=== PATIENT | male | born 1955 | race Hispanic/Latino ===

== ENCOUNTER 2019-08-31 14:00 | Inpatient (IN) | payer OTHER ==
[~2019-08-31] VITALS: Ht 170.2 cm; Wt 96.9 kg
[2019-08-31 13:56] VITALS: BP 132/77
[2019-08-31 14:04] LABS: BASOPHILS % (AUTO) 0.5 % (0.0-5.0); HEMATOCRIT 44.2 % (42-54); LYMPHOCYTES % (AUTO) 38.8 % (21.0-51.0); MEAN CORPUSCULAR HEMOGLOBIN 32.2 pg (27.0-33.0); MEAN CORPUSCULAR HGB CONC 34.9 g/dL (32.0-36.0); MEAN CORPUSCULAR VOLUME 92.2 fL (79-99); MONOCYTES % (AUTO) 12.5 % (3.0-13.0); NEUTROPHILS % (AUTO) 45.2 % (40.0-77.0); PLATELET COUNT (AUTO) 196 K/uL (130-400); RED CELL DISTRIBUTION WIDTH 13.3 % (11.0-15.5); WHITE BLOOD COUNT (AUTO) 5.4 K/uL (4.8-10.8)
[2019-08-31 14:07] LABS: APPEARANCE,URINE Clear (CLEAR); BILIRUBIN,URINE Negative (NEGATIVE); COLOR,URINE Yellow (YELLOW); GLUCOSE, URINE (UA) Negative (NEGATIVE); KETONES,URINE Negative (NEGATIVE); LEUKOCYTE ESTERASE ,URINE Trace (NEGATIVE); NITRATE,URINE Negative (NEGATIVE); OCCULT BLOOD,URINE Negative (NEGATIVE); PROTEIN,URINE Negative (NEGATIVE)
[2019-08-31 14:12] LABS: POTASSIUM 4.2 mmol/L (3.5-5.1)
[2019-08-31 14:14] LABS: INR 1.04 (0.85-1.15); PROTHROMBIN TIME 10.9 SEC (9.6-11.6)
[2019-08-31 14:19] LABS: BACTERIA,URINE None Seen /HPF (None Seen); RBC,URINE 0-1 /HPF (0-1); SQUAMOUS EPITHELIAL CELL,UR 0-2 /HPF (0-2)
[2019-08-31] MEDS ORDERED: ASPI-555 PO (14:25)
[2019-08-31] MEDS ORDERED: CETI10TA57 PO (14:25)
[2019-08-31] MEDS ORDERED: DOCUSATE PO (14:25)
[2019-08-31] MEDS ORDERED: CIPR-278 PO (14:25)
[2019-08-31] MEDS ORDERED: SENNOSIDES PO (14:25)
[2019-08-31] MEDS ORDERED: vitamin D3 PO (14:25)
[2019-08-31] MEDS: CEFAZOLIN SODIUM 1 GM VIAL IVP SCH (15:00)
--- NOTE | 2019-08-31 17:40 | NUR ---
UA INFORMED DR. HARRINGTON OF ABNORMAL UA. ORDERS RECEIVED TO GIVE GENTAMICIN 240MG IV ON AM OF SURGERY AND SEND URINE FOR CULTURE.
[2019-09-01] VITALS (22 sets, daily range): BP systolic 122–159; BP diastolic 62–86
[2019-09-01] MEDS ORDERED: GENTAMICIN SULFATE 240 MG in SODIUM CHLORIDE 0.9% 100 ML IV SCH (07:00)
[2019-09-01] MEDS ORDERED: LACTATED RINGERS 1000ML 1,000 ML IV ONE (09:27)
[2019-09-01] MEDS ORDERED: FINA5TAB41 PO (09:49)
[2019-09-01] MEDS ORDERED: NAPR250T4 PO (09:49)
[2019-09-01] MEDS ORDERED: PANT40TA25 PO (09:49)
[2019-09-01] MEDS ORDERED: CHOL200074 PO (09:49)
[2019-09-01] MEDS ORDERED: ACETAMINOPHEN EXTRA STRENGTH 500 MG TABLET ONE (12:38)
[2019-09-01] MEDS ORDERED: KETOROLAC TROMETHAMINE 15MG/ML ONE (12:38)
[2019-09-01] MEDS ORDERED: METOCLOPRAMIDE 10 MG/2 ML VIAL ONE (12:38)
[2019-09-01] MEDS ORDERED: CELECOXIB 200 MG CAP ONE (12:39)
[2019-09-01] MEDS ORDERED: TRANEXAMIC ACID 1000MG/10ML IV ONE (13:08)
[2019-09-01] MEDS ORDERED: CEFAZOLIN SODIUM 1 GM VIAL ONE (13:08)
[2019-09-01] MEDS ORDERED: LIDOCAINE PF 2% 5ML ABBOJECT ONE (14:47)
[2019-09-01] MEDS ORDERED: DEXAMETHASONE SOD PHOSPHATE 10MG/ML 1ML VIAL ONE (14:48)
[2019-09-01] MEDS ORDERED: ONDANSETRON HCL 4 MG/2 ML VIAL ONE (14:48)
[2019-09-01] MEDS ORDERED: PROPOFOL 10 MG/ML 20ML VIAL IV ONE (14:48)
[2019-09-01] MEDS ORDERED: MIDAZOLAM HCL 1 MG/ML 2ML VIAL ONE (14:48)
[2019-09-01] MEDS ORDERED: FENTANYL CITRATE PF 50 MCG/1 ML 2ML VIAL ONE ×2 (14:49→16:07)
[2019-09-01] MEDS ORDERED: ROCURONIUM 10MG/1ML SYR 10 MG/ML ML ONE (15:34)
[2019-09-01] MEDS: CEFAZOLIN SODIUM 1 GM VIAL IVP SCH ×2 (15:44→21:36)
[2019-09-01] MEDS ORDERED: CEFAZOLIN SODIUM 1 GM VIAL IRRIG ONE (16:30)
[2019-09-01] MEDS ORDERED: FERROUS FUMARATE 324 MG TABLET PO PRN (17:30)
[2019-09-01] MEDS ORDERED: KETOROLAC TROMETHAMINE 15MG/ML IV PRN (17:30)
[2019-09-01] MEDS ORDERED: OXYCODONE HCL 5 MG TAB PO PRN (17:30)
[2019-09-01] MEDS: ACETAMINOPHEN EXTRA STRENGTH 500 MG TABLET PO SCH ×2 (17:30→23:39)
[2019-09-01] MEDS ORDERED: TRAMADOL HCL 50 MG TABLET PO PRN (17:30)
[2019-09-01] MEDS ORDERED: DiphenhydrAMINE HCL 50 MG/ML VIAL IVP PRN (17:30)
[2019-09-01] MEDS ORDERED: ONDANSETRON HCL 4 MG/2 ML VIAL IVP PRN (17:30)
[2019-09-01] MEDS ORDERED: CALCIUM CARBONATE 500 MG TABLET PO PRN (17:30)
[2019-09-01] MEDS ORDERED: GLYCOPYRROLATE 1 MG/5 ML SYRINGE ONE (17:39)
[2019-09-01] MEDS ORDERED: NEOSTIGMINE 5MG/5ML SYR IV ONE (17:40)
[2019-09-01 19:08] LABS: BF EOSINOPHIL 3 %; BF LYMPHOCYTE 91 %
[2019-09-01 19:09] LABS: APPEARANCE BODY FLUID CLOUDY (CLEAR); BODY FLUID WBC 278 /cu. mm.; COLOR,BODY FLUID RED (LT YELLOW); SPECIMENTYPE,BODY FLUID SYNOVIAL; TOTAL VOLUME,BODY FLUID 3 mL
[2019-09-01 19:10] LABS: BODY FLUID RBC 895 /cu. mm.
[2019-09-01] MEDS: SODIUM CHLORIDE 0.9% 1000ML 1,000 ML IV SCH (19:53)
--- NOTE | 2019-09-01 20:00 | NUR ---
ASSESSMENT/TEACHING PATIENT AWAKE, ALERT, OX3, NO SOB, NO C/O PAIN, ENCOURAGE DEEP BREATHING EXERCISES, REINFORCE IS PREVIOUSLY DONE WITH MAXIMUM VOLUME INSPIRATION OF 2000, DRESSING LEFT KNEE WITH BETITO BANDAGE D/I, BLE SCDS IN PLACE, CALL FRIEDMAN AT REACH
[2019-09-01] MEDS: DOCUSATE PO SCH (21:00)
[2019-09-01] MEDS ORDERED: ASPIRIN 81MG TAB.CHEW PO SCH (21:00)
[2019-09-01] MEDS: SENNOSIDES PO SCH (21:00)
[2019-09-01] MEDS: PREGABALIN 25 MG CAP PO SCH (21:12)
[2019-09-01] MEDS: CALCIUM CARBONATE 500 MG TABLET PO SCH (21:12)
[2019-09-01] MEDS: CELECOXIB 200 MG CAP PO SCH (21:12)
[2019-09-01] MEDS: FAMOTIDINE 20MG TAB 20 MG TAB PO SCH (21:12)
[2019-09-02 00:12] VITALS: BP 98/61
[2019-09-02] MEDS: SODIUM CHLORIDE 0.9% 1000ML 1,000 ML IV SCH ×2 (03:17→12:25)
[2019-09-02 04:20] VITALS: BP 135/84
[2019-09-02] MEDS: CEFAZOLIN SODIUM 1 GM VIAL IVP SCH (05:33)
[2019-09-02 07:30] VITALS: BP 118/74
[2019-09-02] MEDS: SENNOSIDES PO SCH ×2 (07:44→21:00)
[2019-09-02] MEDS: DOCUSATE PO SCH ×2 (07:44→21:00)
[2019-09-02] MEDS: CHOLECALCIFEROL 1000 UNIT PO SCH (07:44)
[2019-09-02] MEDS: CELECOXIB 200 MG CAP PO SCH ×2 (08:14→19:49)
[2019-09-02] MEDS: ASPIRIN 81 MG EC TAB PO SCH (08:14)
[2019-09-02] MEDS: POLYETHYLENE GLYCOL 3350 17 GM POWD.PACK PO SCH (08:14)
[2019-09-02] MEDS: FAMOTIDINE 20MG TAB 20 MG TAB PO SCH ×2 (08:14→19:49)
[2019-09-02] MEDS: PREGABALIN 25 MG CAP PO SCH ×2 (08:14→19:49)
[2019-09-02] MEDS: LEVOFLOXACIN 500 MG TABLET PO SCH (08:15)
[2019-09-02] MEDS: CALCIUM CARBONATE 500 MG TABLET PO SCH ×2 (08:15→19:49)
[2019-09-02] MEDS: PANTOPRAZOLE SODIUM 40 MG TABLET.DR PO SCH (08:15)
[2019-09-02] MEDS: ACETAMINOPHEN EXTRA STRENGTH 500 MG TABLET PO SCH ×2 (08:29→18:29)
[2019-09-02] MEDS: FINASTERIDE 5 MG TABLET PO SCH (08:29)
--- NOTE | 2019-09-02 10:00 | NUR ---
DCP CM met with pt discussed dc plans. Pt is independent prior to surgery, lives at home w/spouse. Pt has a walker, rollator walker, shower chair. Denies any other equipments/services. Feels safe to go back home, spouse able to assist with transportation and needs as necessary. Agreeable for home w/HH, DME, [facility] to [facility], confirmation received. DC plan to home w/HH and DME. CM to cont to follow up. Addendum: 09/02/19 at 1447 by DIVYA LEMUS LVN CM Amended: Links added.
[2019-09-02 11:00] VITALS: BP 122/68
--- NOTE | 2019-09-02 11:00 | NUR ---
CM Note: [facility]ancelled [facility] for [facility] per pt request. CM met with pt and spouse as per pt request. Verbalized it woud be difficult for spouse to take care of pt at home, requested to go to IRU. VERNON signed for [facility]. Informed pt will inform MD of pt's request. Dr Barnett called as CM dialing MD#, as per Dr Barnett ok for pt to go to [facility] for rehab. CM spoke to pt and made aware of MD recommendations, pt agreeable to go to [facility]. Faxed order, clinicals, PT, confirmatino received. Pt pending approval and acceptance. Primary nurse aware. CM to cont to follow up.
--- NOTE | 2019-09-02 14:49 | NUR ---
CM Note: [facility] pending [facility] CM spoke to Lyly canales/Vimal . Received order and clinicals, states will submit for auth to [facility] today. Pt pending approval. MOT semi-filled pending to be completed, flagged in chart. EMS arranged and faxed for tomorrow, primary nurse to call [facility] once pt ready to DC if needed tomorrow. Primary nurse aware. CM to cont to follow up.
[2019-09-02 16:00] VITALS: BP 113/63
[2019-09-02] MEDS: OXYCODONE HCL 5 MG TAB PO PRN ×2 (19:46→23:50)
[2019-09-02 20:15] VITALS: BP 112/62
[2019-09-03 00:20] VITALS: BP 108/64
[2019-09-03] MEDS: ACETAMINOPHEN EXTRA STRENGTH 500 MG TABLET PO SCH ×3 (01:30→17:30)
[2019-09-03 04:18] VITALS: BP 121/78
[2019-09-03] MEDS: PANTOPRAZOLE SODIUM 40 MG TABLET.DR PO SCH (08:02)
[2019-09-03] MEDS: OXYCODONE HCL 5 MG TAB PO PRN ×2 (08:04→12:43)
[2019-09-03 08:05] VITALS: BP 136/78
[2019-09-03] MEDS: DOCUSATE PO SCH (09:00)
[2019-09-03] MEDS: CHOLECALCIFEROL 1000 UNIT PO SCH (09:00)
[2019-09-03] MEDS: SENNOSIDES PO SCH (09:00)
[2019-09-03] MEDS: POLYETHYLENE GLYCOL 3350 17 GM POWD.PACK PO SCH (10:05)
[2019-09-03] MEDS: ASPIRIN 81 MG EC TAB PO SCH (10:07)
[2019-09-03] MEDS: CELECOXIB 200 MG CAP PO SCH (10:07)
[2019-09-03] MEDS: PREGABALIN 25 MG CAP PO SCH (10:07)
[2019-09-03] MEDS: FAMOTIDINE 20MG TAB 20 MG TAB PO SCH (10:07)
[2019-09-03] MEDS: CALCIUM CARBONATE 500 MG TABLET PO SCH (10:08)
[2019-09-03] MEDS: LEVOFLOXACIN 500 MG TABLET PO SCH (10:08)
[2019-09-03] MEDS: FINASTERIDE 5 MG TABLET PO SCH (10:08)
--- NOTE | 2019-09-03 10:11 | NUR ---
cmnote call made to Melania at [facility] [phone]. who states they have received referral and they [facility] the [facility]. also, call made to Elizabeth KELLY at [facility] [phone], and states that they have forwarded this request to the [facility], and that the houseperson is Dunacn KELLY covering today. ph# is [phone]. call made to Duncan Kennedy to followup on status of referral. no answer left voicemail. pending call back.
[2019-09-03 11:29] VITALS: BP 120/76
--- NOTE | 2019-09-03 14:30 | NUR ---
DRESSING CHANGE PT'S DRESSING CHANGED REMOVED LEFT KNEE BETITO WRAP AND DRESSING, INCISION CLEAN AND DRY, NO REDNESS OR DRAINAGE NOTED TO SITE, SLIGHT EDEMA NOTED TO KNEE AREA, CLEANSED AREA WITH BETADINE AND COVER WITH 4X4'S AND HYPAFIX TAPE, TOLERATED WELL.
--- NOTE | 2019-09-03 15:00 | NUR ---
cm note pt has been accepted per Melania at [facility], states can call report to [phone]. address for rehab is [id number]. updated primary md. and primary nurse.
--- NOTE | 2019-09-03 15:18 | NUR ---
FLU VACCINE PT STATES HAD FLU VACCINE LAST MONTH.
--- NOTE | 2019-09-03 15:55 | NUR ---
CALL TO EMS T/C PLACED TO EMS SPOKE WITH GURWINDER TO VERIFY IF THEY HAVE RECEIVED INFO. STATES HAVE FACE SHEET AND ALSO ASKED ABOUT ROOM NUMBER, INFORMED THAT NURSE IS AT THIS MOMENT GIVING REPORT. STATES WOULD LIKE A ROOM NUMBER, INFORMED WILL CALL BACK
--- NOTE | 2019-09-03 16:03 | NUR ---
EMS CALL BACK TO EMS SPOKE WITH GURWINDER AND INFORMED HER ROOM NUMBER [id number], ALSO INFORMED PT WITH BE GOING TO [facility] VIA AMBULANCE. Addendum: 09/03/19 at 1620 by JULIETTE QUINTERO RN ADDENDUM, CORRECTION PT WAS INFORMED HE WILL BE GOING TO [facility] VIA AMBULANCE
--- NOTE | 2019-09-03 16:25 | NUR ---
DISCHARGE TEACHING DISCHARGE TEACHING PROVIDED TO PATIENT REGARDING MD DISCHARGE ORDERS (DAILY DRESSING CHANGES, SCHEDULED F/U APPT WITH DR. HARRINGTON, ACTIVITY WBAT WITH WALKER, MEDICATIONS TO BE CONTINUED, PHYSICAL THERAPY). PATIENT VERBALIZED UNDERSTANDING OF DISCHARGE TEACHING. REMOVED 20G IV FROM LEFT HAND, CATHETER TIP INTACT. NURSE REPORT GIVEN TO ARABELLA KATZ OF [facility]. INFORMED ARABELLA KATZ OF DR. HARRINGTON DISCHARGE ORDERS. ARABELLA KATZ DID VERIFY PATIENT MEDICATION RECONCILIATION PAPERWORK RECEIVED. COPY OF DR. HARRINGTON DISCHARGE ORDERS AND MEDICATION RECONCILIATION FORMS PLACED IN CHART COPY FOLDER.
--- NOTE | 2019-09-03 16:30 | NUR ---
T/C PLACED TO EMS T/C PLACED TO EMS AND SPOKE WITH BEN, REGARDING STATUS TRANSPORTATION, STATES COULD NOT TELL ME A TIME EMS WILL BE HERE TO GUIDE VISITOR.
--- NOTE | 2019-09-03 16:45 | NUR ---
T/C PLACED TO [facility] T/C PLACED TO [phone]. TO REQUEST FAX NUMBER. NO RESPONSE.
--- NOTE | 2019-09-03 17:05 | NUR ---
EMS T/C PLACED TO EMS BY MISAEL,SAID SPOKE WITH GURWINDER, STILL NO TIME GIVEN TO WINE STEWARD/STEWARDESS PT.
--- NOTE | 2019-09-03 17:35 | NUR ---
CALL TO [facility] [employer] T/C PLACED TO INFORM HER THAT EMS HAS NOT ARRIVED AND HAS BEEN CALLED.STATES TO INFORM ARMEN DIRECTOR FOR .
--- NOTE | 2019-09-03 17:40 | NUR ---
T/C TO LITTLE COMPTON DIRECTOR FOR . [facility]FOR[facility] TIME OF CALL TO AMBULANCE, INFORMED TO WAIT FOR TWO HOUR [facility]UTH ANN AND IF AMBULANCE NOT THERE THEN FOR NURSE TO CALL HER.
--- NOTE | 2019-09-03 17:45 | NUR ---
PATIENT AND UPSET PATIENTS CAME TO NURSES STATION AND STATES "WHAT IS TAKING THE EMS SO LONG TO GET HERE? I JUST WANT TO TAKE HIM IN MY OWN CAR." I REPLIED TO PATIENTS THAT I WAS TOLD BY CHARGE NURSE ARABELLA SEGOVIA THAT WE HAVE BEEN CALLING [facility] EMS APPROXIMATELY EVE3RY 30 MINUTES TO FOLLOW-UP [facility] REGARDING EXPECTED TIME OF ARRIVAL. PATIENT WALKED TO HIS DOOR AND BEGAN TO SAY IN A LOUD VOICE "CAN YOU JUST BRING A WHEELCHAIR SO I CAN LEAVE ALREADY!" I TOLD THEM I WOULD CALL DR. HARRINGTON TO GET AN OKAY FOR PATIENT TO LEAVE VIA PRIVATE VEHICLE.
--- NOTE | 2019-09-03 17:50 | NUR ---
DR. HARRINGTON CALLED MD TO REPORT [facility] EMS HAS NOT ARRIVED AT THIS TIME AND PATIENT AND HIS APPEAR UPSET AND ARE ASKING IF THEY CAN TRAVEL TO [facility] VIA PRIVATE VEHICLE. DR. HARRINGTON REPLIED THAT IT IS OKAY FOR PATIENT TO BE TRANSPORTED TO [facility] VIA PRIVATE VEHICLE.
--- NOTE | 2019-09-03 17:54 | NUR ---
[facility] CANCELED CALLED [facility] [phone] TO INFORM THAT MD HAS OKAYED FOR PATIENT TO BE TRANSPORTED VIA PRIVATE VEHICLE INSTEAD OF EMS.
--- NOTE | 2019-09-03 18:00 | NUR ---
PATIENT DEPARTURE PATIENT AND HIS INFORMED THAT DR. HARRINGTON DID GIVE OKAY FOR PATIENT TO BE TRANSORTED TO [facility] VIA PRIVATE VEHICLE. PATIENTS WILL BE DRIVING PATIENT. PROVIDED PATIENT CHART COPY FOLDER TO PATIENTS AND INSTRUCTED TO PROVIDE PATIENTS CHART COPY FOLDER TO NURSING STAFF UPON ARRIVAL TO [facility]. ADDRESS TO [facility] PROVIDED TO PATIENTS WELL.
[2019-09-04] MEDS ORDERED: BISACODYL 10 MG SUPP.RECT RC PRN (17:30)
== END 2019-09-03 18:06 | DRG 470 ==
LOC: DAHIP 09-01 08:12 → 4AH 09-01 17:36
PROVIDERS: ADMIT Orthopaedic Surgery; ATTEND Orthopaedic Surgery
PROC: 0SRD0N9 Replacement of Left Knee Joint with Patellofemoral Synthetic Substitute, Cemented, Open Approach (ICD-10-PCS; principal; 2019-09-01 14:37)
DX: T84.013A Broken internal left knee prosthesis, initial encounter (principal); I10 Essential (primary) hypertension; N32.81 Overactive bladder; N40.1 Benign prostatic hyperplasia with lower urinary tract symptoms; Z82.49 Family history of ischemic heart disease and other diseases of the circulatory system; Z83.3 Family history of diabetes mellitus; Z87.891 Personal history of nicotine dependence; Z96.652 Presence of left artificial knee joint; H91.90 Unspecified hearing loss, unspecified ear; F32.9 Major depressive disorder, single episode, unspecified; M23.8X2 Other internal derangements of left knee; K21.9 Gastro-esophageal reflux disease without esophagitis; K59.09 Other constipation; M19.90 Unspecified osteoarthritis, unspecified site; H81.10 Benign paroxysmal vertigo, unspecified ear; G89.29 Other chronic pain; Z88.8 Allergy status to other drugs, medicaments and biological substances; Y83.8 Other surgical procedures as the cause of abnormal reaction of the patient, or of later complication, without mention of misadventure at the time of the procedure; Y92.89 Other specified places as the place of occurrence of the external cause
CPT/HCPCS: 36415; 80048; 81001; 85025; 85610; 87070; 87076; 87088; 87205; 87641; 88300; 89051; 96365; 96374; 96375; 97039; G0378; J0690; J1100; J1580; J1885; J2001; J2250; J2405; J2704; J2710; J2765; J3010; J3490; J7030; J7120